=== PATIENT | female | born 1935 | race Native Hawaiian/Other Pacific Islander ===

== ENCOUNTER 2016-07-24 14:21 | Outpatient (CLI) | payer OTHER ==
[~2016-07-24 14:21] MED LIST: ALPR0.5T24 PO; AMLO2.5T PO; ASA LOW DOSE81 MG PO; ASCO500T18 PO; B12-ACTIVE1 MG PO; BUME1TAB19 PO; CELE200C2 PO; CELEBREX50 MG PO; COZAAR100 MG PO; CYCL10TA35 PO; DEXL60CA4 PO; DULO30CA PO; DULO60CA2 PO; FERRO-BOB325 MG PO; FISH OIL1 C10 PO; FURO20TA67 PO; HYDROCHLOROT50 MG PO; INSUINJ47 SC; K-TABS10 MEQ PO; KLOR-CON M2020 MEQ PO; LEVO0.0529 PO; LORA1TAB17 PO; MELOXICAM15 MG PO; MULTIVITAMI1 PO; NORCO 10/325***1 TAB PO; NOVOLOG MIX 70/30 PR SC; NOVOLOG SC; OCUVITE LUTEIN PO; OMEGA 31200 MG PO; OMEP20CA PO; PACERONE200 MG PO; PANT40TA PO; PRAVACHOL20 MG PO; REMERON30 MG PO; REQUIP0.25 MG PO; SEROQUEL25 MG PO; SPIR50TA8 PO; VITAMIN B-12100 MCG PO; WARF7.5T5 PO; WARFARIN10 MG PO; ZANTAC 75 PO
== END 2016-07-24 19:11 | disposition home or self-care (01) ==
LOC: MAMMO 14:21 → US 14:21
DX: Z12.31 Encounter for screening mammogram for malignant neoplasm of breast (principal); G25.81 Restless legs syndrome
CPT/HCPCS: G0202-TC

== ENCOUNTER 2016-08-10 11:48 | Outpatient (CLI) | payer OTHER | END 2016-08-10 19:02 | disposition home or self-care (01) | LOC: RAD 11:48 | DX: S72.335D Nondisplaced oblique fracture of shaft of left femur, subsequent encounter for closed fracture with routine healing (principal) ==

== ENCOUNTER 2016-09-14 10:28 | Observation (INO) | payer OTHER ==
[~2016-09-14] VITALS: Ht 165.1 cm; Wt 125.3 kg
[2016-09-14 13:16] LABS: PLATELET COUNT 185 K/uL (152-353)
[2016-09-14 13:39] LABS: POTASSIUM 4.2 mmol/L (3.6-5.2); SODIUM 135 mmol/L (136-145)
[2016-09-14 16:00] VITALS: BP 109/54; TEMP 97.4
[2016-09-14 20:16] VITALS: BP 146/68; TEMP 98; Ht 165.1 cm; Wt 125.3 kg
[2016-09-14 20:47] VITALS: BP 127/58; TEMP 98
[2016-09-14] MEDS ORDERED: MULTIVITAMIN OR (23:17)
[2016-09-14] MEDS ORDERED: NEXIUM40 MG PO (23:19)
[2016-09-14] MEDS ORDERED: COZAAR100 MG PO (23:20)
[2016-09-14] MEDS ORDERED: CELEBREX200 MG PO (23:21)
[2016-09-14] MEDS ORDERED: WARF5TAB6 PO (23:24)
[2016-09-14] MEDS ORDERED: ROPINIROLE2 M1 OR (23:26)
[2016-09-14] MEDS ORDERED: WARF4TAB7 PO (23:27)
[2016-09-14] MEDS ORDERED: SEROQUEL50 MG OR (23:29)
[2016-09-14] MEDS ORDERED: COUMADIN6 MG PO (23:31)
[2016-09-14] MEDS ORDERED: OCUVITE EYE OR (23:32)
[2016-09-14] MEDS ORDERED: MULTI OR (23:32)
[2016-09-15 00:24] VITALS: BP 104/50; TEMP 98.4
[2016-09-15 05:07] VITALS: BP 133/75; TEMP 97.8
[2016-09-15 08:00] VITALS: BP 161/83; TEMP 98.4
[2016-09-15 10:47] LABS: PLATELET COUNT 193 K/uL (152-353)
[2016-09-15 11:12] LABS: POTASSIUM 4.3 mmol/L (3.6-5.2); SODIUM 133 mmol/L (136-145)
[2016-09-15 12:00] VITALS: BP 183/84; TEMP 98.2
[2016-09-15 16:00] VITALS: BP 150/76; TEMP 98
[2016-09-15 19:56] VITALS: BP 137/54; TEMP 98.1
[2016-09-16] VITALS: BP 138/66; TEMP 98.2
[2016-09-16 04:57] LABS: PLATELET COUNT 193 K/uL (152-353)
[2016-09-16 05:11] LABS: POTASSIUM 4.3 mmol/L (3.6-5.2)
[2016-09-16 05:28] VITALS: BP 120/53; TEMP 98.1
[2016-09-16 08:18] VITALS: BP 142/80; TEMP 98.2
[2016-09-16 12:00] VITALS: BP 110/58; TEMP 98.4
== END 2016-09-16 18:54 | disposition short-term general hospital (02) ==
LOC: MED/SURG 10:28
PROVIDERS: ADMIT Family Medicine
DX: R07.89 Other chest pain (principal)
CPT/HCPCS: 36415; 80053; 82550; 82553; 83735; 83880; 84484; 85027; 85610; 85730; 93005; 94760; 99220; G0378; G0379

== ENCOUNTER 2016-09-16 18:58 | Outpatient (CLI) | payer OTHER ==
[~2016-09-16 18:58] MED LIST changes: +CELEBREX200 MG PO; +COUMADIN6 MG PO; +MULTI OR; +MULTIVITAMIN OR; +NEXIUM40 MG PO; +OCUVITE EYE OR; +ROPINIROLE2 M1 OR; +SEROQUEL50 MG OR; +WARF4TAB7 PO; +WARF5TAB6 PO
== END 2016-09-16 20:23 | disposition short-term general hospital (02) ==
LOC: AMB 18:58
DX: R07.89 Other chest pain (principal)
CPT/HCPCS: A0425; A0427

== ENCOUNTER 2016-12-08 18:13 | Inpatient (IN) | payer OTHER ==
[~2016-12-08] VITALS: Ht 165.1 cm; Wt 125.4 kg
--- NOTE | 2016-12-08 19:15 | NUR ---
RECEIVED VIA DIRECT ADMIT FOR SERVICES OF DR PAUL. ALERT AND ORIENTED X 3. PATIENT GIVEN EDUCATION REGARDING BED CONTROLS AND CALL LIGHT. INSTRUCTED TO KEEP BED IN LOW POSITION. 20G STARTED IN LT HAND. NS INFUSING AT 30CC/HR. LAB WORK DRAWN VIA IV SITE, FAMILY AT BEDSIDE.
[2016-12-08 19:54] LABS: PLATELET COUNT 184 K/uL (152-353)
[2016-12-08 20:00] VITALS: BP 128/48; TEMP 99.4; Ht 165.1 cm; Wt 125.4 kg
--- NOTE | 2016-12-08 20:00 | NUR ---
RT LOWER LEG PURPLE COLORED BELOW KNEE. PEDAL PULSE REGULAR. CALF CIRCUMFERENCE = 41.5 CM. LT CALF CICUMFERENCE 40.5 CM.
[2016-12-08 20:17] LABS: POTASSIUM 4.6 mmol/L (3.6-5.2)
[2016-12-08 23:46] VITALS: BP 106/65; TEMP 100.5
[2016-12-09] MEDS ORDERED: JANTOVEN7.5 MG OR (01:01)
[2016-12-09 04:00] VITALS: BP 107/56; TEMP 99
[2016-12-09 04:59] LABS: PLATELET COUNT 178 K/uL (152-353)
[2016-12-09 06:02] LABS: POTASSIUM 4.8 mmol/L (3.6-5.2)
--- NOTE | 2016-12-09 07:50 | NUR ---
LEFT MESSAGE WITH DR PAUL REGARDING REPORT GIVEN ON PATIENT FROM [facility] OF INCREASE IN REDNESS TO RIGHT LEG. DOCUMENTATION OBSERVED OF INCREASE AT MN AND 0230AM. REPORTED TO MYSELF FROM [facility] MD NOT NOTIFIED.
[2016-12-09 08:00] VITALS: BP 128/60; BP 128/96; TEMP 98.4
[2016-12-09 12:13] VITALS: BP 125/68; TEMP 96.5
[2016-12-09 16:00] VITALS: BP 119/63; TEMP 98.7
--- NOTE | 2016-12-09 16:00 | NUR ---
CALLED DR PAUL NO ANSWER ON CELL PHONE REGARDING PT'S C/O OF RESTLESS LEGS.
--- NOTE | 2016-12-09 16:24 | NUR ---
DR PAUL ON FLOOR. INFORMED HER PHARMACY RECOMMENDATIONS. STATED GO WITH VANCOMYCIN 1GM IV Q 12 HOURS AND CONTINUE ZOSYN. INFORMED HER PT REQUESTING RESTLESS LEG MEDICATION. STATED GIVE HER HOME MED.
[2016-12-09 20:00] VITALS: BP 103/50; TEMP 98.8
--- NOTE | 2016-12-09 22:37 | NUR ---
12/09/16 2100 RIGHT LEG MEASURED TOP OF RIGHT LEG AT THIGH 22 INCHES,CALF AREA 18 1/4 INCHES.LOWER LEG MEASURES 11 1/4 INCHES.CC 12/09/16 2200 WARM COMPRESS APPLIED TO RIGHT LEG.CC
[2016-12-10] VITALS: BP 92/47; TEMP 98.2
[2016-12-10 04:00] VITALS: BP 93/53; TEMP 98.6
[2016-12-10 06:31] LABS: PLATELET COUNT 186 K/uL (152-353)
[2016-12-10 06:45] LABS: POTASSIUM 4.4 mmol/L (3.6-5.2)
[2016-12-10 08:00] VITALS: BP 100/49; TEMP 98
[2016-12-10 12:00] VITALS: BP 106/55; TEMP 98.1
[2016-12-10 16:00] VITALS: BP 115/70; TEMP 97.8
[2016-12-10 20:00] VITALS: BP 90/38; TEMP 98.1
[2016-12-11] VITALS: BP 114/59; TEMP 98.1
--- NOTE | 2016-12-11 00:01 | NUR ---
12/10/16 2330 GWENDOLYN HOSE APPLIED TO LEGS BIALTERAL.WARM COMPRESS APPLIED TO RIGHT LEG.PT TOLERATED WELL.CC 12/10/16 BLOOD SUGAR CHECKED PT STATED SHE HASNOT BEEN EATING ALOT WILL MONITOR,BLOOD SUGAR 224.CC
[2016-12-11 04:00] VITALS: BP 115/65; TEMP 98
[2016-12-11 05:40] LABS: PLATELET COUNT 181 K/uL (152-353)
[2016-12-11 06:13] LABS: POTASSIUM 4.4 mmol/L (3.6-5.2)
--- NOTE | 2016-12-11 06:48 | NUR ---
12/11/16 0640 WARM COMPRESSES APPLIED TO RIGHT LEG.CC
[2016-12-11 08:00] VITALS: BP 131/71; TEMP 98.7
[2016-12-11 12:00] VITALS: BP 107/65; TEMP 97.7
[2016-12-11 16:00] VITALS: BP 119/61; TEMP 98.2
[2016-12-11 20:00] VITALS: BP 153/73; TEMP 98.1
--- NOTE | 2016-12-11 21:57 | NUR ---
SCANNED VANC TROUGH TO PHARM D. PHARMACIST RAJESH STATED THAT VANC SHOULD BE GIVEN THAT 20 UG/ML WAS THE MAX. PT'S LEVEL IS 19 UG/ML.
[2016-12-12] VITALS: BP 108/47; TEMP 97.9
[2016-12-12 04:00] VITALS: BP 117/55; TEMP 97.6
[2016-12-12 05:28] LABS: PLATELET COUNT 203 K/uL (152-353)
[2016-12-12 05:38] LABS: POTASSIUM 4.6 mmol/L (3.6-5.2)
[2016-12-12 08:00] VITALS: BP 157/86; TEMP 97.9
--- NOTE | 2016-12-12 09:30 | NUR ---
DR PAUL NOTIFIED OF LAB RESULTS. NEW ORDERS RECEIVED FOR PATIENT TO BE DISCHARGED HOME ONCE ANTIOBIOTICS DOSED AND SCHEDULED PER PHARMACY FOR INFUSION CLINIC X 5 DAYS STARTING TOMORROW.
[2016-12-12 12:00] VITALS: BP 147/86; TEMP 98.1
--- NOTE | 2016-12-12 13:05 | NUR ---
PT D/C'D AWAITING TRANSPORTATION HOME. PT GIVEN INSTRUCTIONS.
--- NOTE | 2016-12-12 14:00 | NUR ---
INFORMED DR PAUL THAT PATIENT STILL ON SOLUMEDROL IV. INFORMED HER PT AWAITING TRANSPORTATION HOME TO WHY PATIENT STILL HERE. STATED NEW ORDERS TO CALL IN RX FOR COUMADIN 7.5MG PO DAILY; REPEAT PT/INR ON FRIDAY IN INFUSION CLINIC. D/C SOLUMEDROL.
[2016-12-12 16:00] VITALS: BP 130/71; TEMP 97.9
--- NOTE | 2016-12-12 16:50 | NUR ---
IV D/C'D CATH TIP INTACT. INSTRUCTIONS GIVEN TO PT. DAUGHTER HERE TO TRANSPORT HOME.
== END 2016-12-12 17:30 | disposition home or self-care (01) | DRG 603 ==
LOC: MED/SURG 18:13
PROVIDERS: ADMIT Family Medicine
DX: L03.115 Cellulitis of right lower limb (principal); N39.0 Urinary tract infection, site not specified; I87.8 Other specified disorders of veins; I10 Essential (primary) hypertension; E11.9 Type 2 diabetes mellitus without complications; Z91.14 Patient's other noncompliance with medication regimen; T45.515A Adverse effect of anticoagulants, initial encounter; Y92.89 Other specified places as the place of occurrence of the external cause
CPT/HCPCS: 36415; 36591; 80053; 80202; 81000; 82948; 83735; 83880; 84100; 84443; 85027; 85379; 85610; 85651; 87040; 87077; 87086; 87088; 87186; 96372; J1335; J1815; J1885; J2930

== ENCOUNTER 2016-12-13 12:42 | Outpatient (CLI) | payer OTHER ==
[~2016-12-13] VITALS: Ht 165.1 cm; Wt 125.3 kg
[~2016-12-13 12:42] MED LIST changes: +JANTOVEN7.5 MG OR
== END 2016-12-13 19:08 | disposition home or self-care (01) ==
LOC: INF 12:42
DX: L03.818 Cellulitis of other sites (principal)
CPT/HCPCS: 96365; 96367; J1335; J3370

== ENCOUNTER 2016-12-14 12:45 | Outpatient (CLI) | payer OTHER ==
[~2016-12-14] VITALS: Ht 30.5 cm; Wt 0.5 kg
== END 2016-12-14 16:00 | disposition home or self-care (01) ==
LOC: INF 12:45
DX: L03.818 Cellulitis of other sites (principal)
CPT/HCPCS: 96365; 96367; J1335; J3370

== ENCOUNTER 2016-12-15 13:14 | Outpatient (CLI) | payer OTHER ==
[~2016-12-15] VITALS: Ht 2.5 cm; Wt 0.5 kg
== END 2016-12-15 16:00 | disposition home or self-care (01) ==
LOC: INF 13:14
DX: L03.818 Cellulitis of other sites (principal)
CPT/HCPCS: 96365; 96367; J1335; J3370

== ENCOUNTER 2016-12-16 13:04 | Outpatient (CLI) | payer OTHER ==
[~2016-12-16] VITALS: Ht 165.1 cm; Wt 125.2 kg
[2016-12-16 15:31] LABS: PARTIAL THROMBOPLASTIN TIME 24.5 SECONDS (24.5-33.6)
== END 2016-12-16 16:00 | disposition home or self-care (01) ==
LOC: INF 13:04
PROVIDERS: Family Medicine
DX: L03.818 Cellulitis of other sites (principal)
CPT/HCPCS: 80202; 85610; 85730; J1335; J3370

== ENCOUNTER 2016-12-17 12:47 | Outpatient (CLI) | payer OTHER ==
[~2016-12-17] VITALS: Ht 165.1 cm; Wt 125.2 kg
[2016-12-17 12:55] VITALS: BP 142/59; TEMP 99.2
[2016-12-17 14:40] VITALS: BP 149/76
== END 2016-12-17 14:40 | disposition home or self-care (01) ==
LOC: INF 12:47
DX: L03.818 Cellulitis of other sites (principal)
CPT/HCPCS: 96365; 96366; J1335; J3370

== ENCOUNTER 2017-01-15 10:20 | Outpatient (CLI) | payer OTHER ==
[~2017-01-15] VITALS: Ht 165.1 cm; Wt 122.9 kg
[2017-01-15 11:20] VITALS: BP 95/49; TEMP 98
== END 2017-01-15 11:20 ==
LOC: INF 10:20
DX: M81.0 Age-related osteoporosis without current pathological fracture (principal)
CPT/HCPCS: 36415; 82310; 96372; J0897

== ENCOUNTER 2017-01-30 04:02 | Emergency (ER) | payer OTHER ==
[~2017-01-30] VITALS: Ht 165.1 cm; Wt 121.6 kg
[2017-01-30 04:26] LABS: PLATELET COUNT 218 K/uL (152-353)
[2017-01-30 04:32] LABS: POTASSIUM 4.8 mmol/L (3.6-5.2)
[2017-01-30 04:57] LABS: PARTIAL THROMBOPLASTIN TIME 38.2 SECONDS (24.5-33.6)
[2017-01-30 05:05] VITALS: BP 103/61; TEMP 98.3
== END 2017-01-30 05:33 | disposition home or self-care (01) ==
LOC: ED 04:02
DX: L03.115 Cellulitis of right lower limb (principal); I48.91 Unspecified atrial fibrillation
CPT/HCPCS: 36415; 80048; 85027; 85610; 85730; 96365; 99284; J3490

== ENCOUNTER 2017-02-12 10:13 | Outpatient (CLI) | payer OTHER | END 2017-02-12 18:55 | disposition home or self-care (01) | LOC: RAD 10:13 | DX: M81.0 Age-related osteoporosis without current pathological fracture (principal) ==

== ENCOUNTER 2017-02-18 09:41 | Outpatient (CLI) | payer OTHER ==
[2017-06-06] MEDS ORDERED: CELECOXIB200 MG PO (19:53)
[2017-06-06] MEDS ORDERED: FLONASE AL50 MCG/ACT (19:54)
[2017-06-06] MEDS ORDERED: PROAIR HFA IN (19:55)
[2017-06-06] MEDS ORDERED: HYDR5TAB9 PO (19:59)
== END 2017-02-18 19:00 | disposition home or self-care (01) ==
LOC: RAD 09:41
DX: S72.22XD Displaced subtrochanteric fracture of left femur, subsequent encounter for closed fracture with routine healing (principal)

== ENCOUNTER 2017-04-28 15:48 | Outpatient (CLI) | payer OTHER ==
[2017-04-28 16:11] LABS: POTASSIUM 4.4 mmol/L (3.6-5.2); SODIUM 138 mmol/L (136-145)
[2017-06-06] MEDS ORDERED: CELECOXIB200 MG PO (19:53)
[2017-06-06] MEDS ORDERED: FLONASE AL50 MCG/ACT (19:54)
[2017-06-06] MEDS ORDERED: PROAIR HFA IN (19:55)
[2017-06-06] MEDS ORDERED: HYDR5TAB9 PO (19:59)
== END 2017-04-28 16:50 | disposition home or self-care (01) ==
LOC: LABW 15:48
PROVIDERS: Internal Medicine Cardiovascular Disease
DX: R06.02 Shortness of breath (principal)
CPT/HCPCS: 36415; 80048; 83880

== ENCOUNTER 2017-06-25 13:05 | Emergency (ER) | payer OTHER ==
[~2017-06-25] VITALS: Ht 165.1 cm; Wt 127.0 kg
[2017-06-25 13:00] VITALS: TEMP 98.4
[~2017-06-25 13:05] MED LIST changes: +CELECOXIB200 MG PO; +FLONASE AL50 MCG/ACT; +HYDR5TAB9 PO; +PROAIR HFA IN
[2017-06-25 14:24] LABS: PLATELET COUNT 206 K/uL (152-353)
[2017-06-25 15:20] VITALS: BP 140/62
== END 2017-06-25 15:32 | disposition home or self-care (01) ==
LOC: ED 13:05
PROVIDERS: Family Medicine
DX: R04.0 Epistaxis (principal)
CPT/HCPCS: 36415; 85027; 85610; 99283

== ENCOUNTER 2017-08-14 10:16 | Outpatient (CLI) | payer OTHER | END 2017-08-14 22:21 | disposition home or self-care (01) | LOC: MAMMO 10:16 | DX: Z12.31 Encounter for screening mammogram for malignant neoplasm of breast (principal) ==

== ENCOUNTER 2017-08-26 10:01 | Outpatient (CLI) | payer OTHER ==
[~2017-08-26] VITALS: Ht 165.1 cm; Wt 121.1 kg
[2017-08-26 11:11] VITALS: BP 158/78; TEMP 98
[2017-08-26 11:23] VITALS: BP 157/72; TEMP 98
== END 2017-08-26 11:27 | disposition home or self-care (01) ==
LOC: INF 10:01
DX: M81.0 Age-related osteoporosis without current pathological fracture (principal)
CPT/HCPCS: 36415; 82310; 96372; J0897

== ENCOUNTER 2018-04-02 09:50 | Outpatient (CLI) | payer OTHER ==
[~2018-04-02] VITALS: Ht 165.1 cm; Wt 121.6 kg
== END 2018-04-02 20:07 | disposition home or self-care (01) ==
LOC: INF 09:50
DX: M81.0 Age-related osteoporosis without current pathological fracture (principal)
CPT/HCPCS: 36415; 82310; 96372; J0897

== ENCOUNTER 2018-05-11 10:57 | Outpatient (CLI) | payer OTHER | END 2018-05-11 22:31 | disposition home or self-care (01) | LOC: RAD 10:57 | DX: J40 Bronchitis, not specified as acute or chronic (principal) ==

== ENCOUNTER 2018-09-01 09:41 | Outpatient (CLI) | payer OTHER | END 2018-09-01 22:59 | disposition home or self-care (01) | LOC: MAMMO 09:41 | DX: Z12.31 Encounter for screening mammogram for malignant neoplasm of breast (principal) ==

== ENCOUNTER 2018-10-21 08:53 | Outpatient (CLI) | payer OTHER ==
[~2018-10-21] VITALS: Ht 165.1 cm; Wt 113.9 kg
[2018-10-21 09:45] VITALS: BP 131/78; TEMP 97.7
== END 2018-10-21 10:45 | disposition home or self-care (01) ==
LOC: INF 08:53
DX: M81.0 Age-related osteoporosis without current pathological fracture (principal)
CPT/HCPCS: 36415; 82310; 96372; J0897

== ENCOUNTER 2019-02-12 15:31 | Outpatient (CLI) | payer OTHER | END 2019-02-12 21:55 | disposition home or self-care (01) | LOC: LAB 15:31 | DX: R06.02 Shortness of breath (principal); R60.0 Localized edema | CPT/HCPCS: 83880 ==

== ENCOUNTER 2019-05-18 10:25 | Outpatient (CLI) | payer OTHER ==
[~2019-05-18] VITALS: Ht 165.1 cm; Wt 113.9 kg
[2019-05-18 10:43] VITALS: BP 142/79; TEMP 98
== END 2019-05-18 11:39 | disposition home or self-care (01) ==
LOC: INF 10:25
DX: M81.0 Age-related osteoporosis without current pathological fracture (principal)
CPT/HCPCS: 36415; 82310; 96372; J0897

== ENCOUNTER 2020-04-11 12:20 | Outpatient (CLI) | payer OTHER | END 2020-04-11 20:22 | disposition home or self-care (01) | LOC: CT 12:20 | DX: R10.31 Right lower quadrant pain (principal); M25.551 Pain in right hip | CPT/HCPCS: 36415; 82565; 84520; Q9963 ==

== ENCOUNTER 2020-04-13 14:23 | Observation (INO) | payer OTHER ==
[~2020-04-13] VITALS: Ht 165.1 cm; Wt 114.0 kg
[2020-04-13 15:03] VITALS: BP 108/69; TEMP 97.9; Ht 165.1 cm; Wt 114.0 kg
[2020-04-13 16:00] VITALS: BP 108/69; TEMP 97.9
[2020-04-13 16:36] LABS: PLATELET COUNT 207 K/uL (152-353)
[2020-04-13 16:46] LABS: POTASSIUM 4.7 mmol/L (3.6-5.2)
[2020-04-13 20:00] VITALS: BP 117/68; BP 89/57; TEMP 97.5; TEMP 98
[2020-04-13] MEDS ORDERED: HYDR5TAB9 PO (20:04)
[2020-04-13] MEDS ORDERED: SPIR50TA8 PO (20:07)
[2020-04-13] MEDS ORDERED: JANTOVEN6 MG PO (20:12)
[2020-04-13] MEDS ORDERED: JANTOVEN7.5 MG PO (20:19)
[2020-04-14] VITALS: BP 95/62; TEMP 98.4
[2020-04-14 04:00] VITALS: BP 93/41; TEMP 98.2
[2020-04-14 04:51] LABS: PLATELET COUNT 162 K/uL (152-353)
[2020-04-14 05:35] LABS: POTASSIUM 4.6 mmol/L (3.6-5.2)
[2020-04-14 08:00] VITALS: BP 141/68; TEMP 97.7
[2020-04-14 12:00] VITALS: BP 103/60; TEMP 98.5
[2020-04-14 16:00] VITALS: BP 9898/48; TEMP 97.9
== END 2020-04-14 20:27 | disposition home or self-care (01) ==
LOC: MED/SURG 14:23
PROVIDERS: ADMIT Family Medicine
DX: M25.78 Osteophyte, vertebrae (principal); M48.00 Spinal stenosis, site unspecified; M54.10 Radiculopathy, site unspecified; E13.65 Other specified diabetes mellitus with hyperglycemia; Z91.19 Patient's noncompliance with other medical treatment and regimen; I10 Essential (primary) hypertension; E78.49 Other hyperlipidemia; I48.0 Paroxysmal atrial fibrillation; Z79.01 Long term (current) use of anticoagulants; E66.01 Morbid (severe) obesity due to excess calories; M15.8 Other polyosteoarthritis
CPT/HCPCS: 36415; 80053; 81000; 82306; 82550; 83735; 84100; 84443; 85027; 85610; 87040; 93005; 96366; 96374; 96375; 99220; A9576; G0378; G0379; J1885; J2060; J2270; J2405; J2930

== ENCOUNTER 2020-08-11 11:19 | Outpatient (CLI) | payer OTHER ==
[~2020-08-11 11:19] MED LIST changes: +JANTOVEN6 MG PO; +JANTOVEN7.5 MG PO
== END 2020-08-11 20:56 | disposition home or self-care (01) ==
LOC: CT 11:19
PROVIDERS: ATTEND Nurse Practitioner Family
DX: R55 Syncope and collapse (principal)

== ENCOUNTER 2020-08-16 09:33 | Outpatient (CLI) | payer OTHER | END 2020-08-16 21:06 | disposition home or self-care (01) | LOC: MAMMO 09:33 | PROVIDERS: ATTEND Internal Medicine Hematology & Oncology | DX: Z12.31 Encounter for screening mammogram for malignant neoplasm of breast (principal); C50.411 Malignant neoplasm of upper-outer quadrant of right female breast; I48.91 Unspecified atrial fibrillation | CPT/HCPCS: 36415; 85610 ==

== ENCOUNTER 2020-08-23 08:58 | Outpatient (CLI) | payer OTHER ==
[2020-08-23 09:36] LABS: PLATELET COUNT 198 K/uL (152-353)
[2020-08-23 10:15] LABS: POTASSIUM 4.8 mmol/L (3.6-5.2)
== END 2020-08-23 19:37 | disposition home or self-care (01) ==
LOC: LABW 08:58
PROVIDERS: ATTEND Internal Medicine Cardiovascular Disease
DX: I10 Essential (primary) hypertension (principal); E78.49 Other hyperlipidemia; Z79.899 Other long term (current) drug therapy; Z79.01 Long term (current) use of anticoagulants
CPT/HCPCS: 36415; 80048; 80061; 84443; 85027; 85610

== ENCOUNTER 2020-09-11 13:04 | Outpatient (CLI) | payer OTHER ==
[2020-09-12] MEDS ORDERED: SPIRONOLACT50 MG PO (18:53)
[2020-09-12] MEDS ORDERED: FAMOTIDINE40 MG PO (18:55)
[2020-09-12] MEDS ORDERED: GABA300C2 PO (18:55)
[2020-09-12] MEDS ORDERED: JANTOVEN6 MG PO (18:56)
[2020-09-12] MEDS ORDERED: JANTOVEN7.5 MG PO (18:57)
[2020-09-12] MEDS ORDERED: IRON PO (18:58)
[2020-09-12] MEDS ORDERED: CALCI20 PO (18:58)
[2020-09-12] MEDS ORDERED: OMEGA 31000 MG PO (18:59)
[2020-09-12] MEDS ORDERED: MULTIVITAMI1 PO (18:59)
[2020-09-12] MEDS ORDERED: VISION FORMULA1 TAB PO (19:00)
[2020-09-12] MEDS ORDERED: VITAMIN C1000 MG PO (19:00)
[2020-09-12] MEDS ORDERED: IS-ZC 50 50 MG1 TAB PO (19:01)
[2020-09-12] MEDS ORDERED: PRENATA1 PO (19:01)
== END 2020-09-11 21:39 | disposition home or self-care (01) ==
LOC: US 13:04
PROVIDERS: ATTEND Nurse Practitioner Family
DX: L02.818 Cutaneous abscess of other sites (principal)

== ENCOUNTER 2020-09-12 15:36 | Inpatient (IN) | payer OTHER ==
[~2020-09-12] VITALS: Ht 165.1 cm; Wt 115.9 kg
[2020-09-12 16:39] VITALS: BP 109/53; TEMP 98.3; Ht 165.1 cm; Wt 115.9 kg
[2020-09-12 16:42] LABS: PLATELET COUNT 253 K/uL (152-353)
[2020-09-12 17:01] LABS: POTASSIUM 4.2 mmol/L (3.6-5.2)
--- NOTE | 2020-09-12 17:44 | NUR ---
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
--- NOTE | 2020-09-12 18:16 | NUR ---
ASSISTED PT TO BATHROOM AND BACK. CLINDAMYCIN STARTED AT THIS TIME.
[2020-09-12] MEDS ORDERED: SPIRONOLACT50 MG PO (18:53)
[2020-09-12] MEDS ORDERED: GABA300C2 PO (18:55)
[2020-09-12] MEDS ORDERED: FAMOTIDINE40 MG PO (18:55)
[2020-09-12] MEDS ORDERED: JANTOVEN6 MG PO (18:56)
[2020-09-12] MEDS ORDERED: JANTOVEN7.5 MG PO (18:57)
[2020-09-12] MEDS ORDERED: CALCI20 PO (18:58)
[2020-09-12] MEDS ORDERED: IRON PO (18:58)
[2020-09-12] MEDS ORDERED: OMEGA 31000 MG PO (18:59)
[2020-09-12] MEDS ORDERED: MULTIVITAMI1 PO (18:59)
[2020-09-12] MEDS ORDERED: VISION FORMULA1 TAB PO (19:00)
[2020-09-12] MEDS ORDERED: VITAMIN C1000 MG PO (19:00)
[2020-09-12] MEDS ORDERED: PRENATA1 PO (19:01)
[2020-09-12] MEDS ORDERED: IS-ZC 50 50 MG1 TAB PO (19:01)
[2020-09-12 20:00] VITALS: BP 144/67; TEMP 98
[2020-09-13] VITALS (7 sets, daily range): BP systolic 91–139; BP diastolic 43–71; TEMP 98–99.3
--- NOTE | 2020-09-13 02:35 | NUR ---
09/12/2020 AT 2130 IV SITE CLEAN WITHOUT EDEMA OR REDNESS AND PATIENT DENIES ANY TENDERNESS. IV SITE FLUSHED WITH 10 MLS OF NORMAL SALINE WITHOUT ANY DIFFICULTY. IV VANCOMYCIN 1GRAM STARTED, PATIENT ADVISED TO CALL IF ANY SWELLING, PAIN OR ANY BEEPING OF IV PUMP AND SHE VERBALIZES UNDERSTANDING. CALL LIGHT WITHIN HER REACH AND WILL CONTINUE TO MONITOR.
--- NOTE | 2020-09-13 02:38 | NUR ---
09/12/2020 AT 2230 IV VANCOMYCIN COMPLETED, PATIENT TOLERATED WELL. NO PAIN OR SWELLING NOTED TO SITE. IV FLUSHED WITH 10 MLS OF NORMAL SALINE WITHOUT ANY DIFFICULTY. GREEN ALCOHOL CAP APPLIED. CALL LIGHT WITHIN REACH AND WILL CONTINUE TO MONITOR.
--- NOTE | 2020-09-13 02:40 | NUR ---
09/12/2020 AT 2330 IV SITE CLEAN DRY AND INTACT, NO REDNESS OR EDEMA NOTED AT THIS TIME. IV SITE FLUSHED WITH 10MLS OF NORMAL SALINE WITHOUT DIFFICULTY AND PATIENT TOLERATED WELL. IV CLEOCIN 300MG STARTED AND PATIENT ADVISED TO NOTIFY NURSE IF ANY PAIN, SWELLING, REDNESS OR PUMP BEEPING AND PATIENT VERBALIZES UNDERSTANDING. CALL LIGHT WITHIN REACH. WILL CONTINUE TO MONITOR.
--- NOTE | 2020-09-13 02:42 | NUR ---
09/13/2020 AT 0015 IV INFUSION OF CLEOCIN COMPLETE, PATIENT TOLERATED WELL. NO SIGNS OR SYMPTOMS OF REACTION AND IV SITE CLEAN, DRY AND INTACT. IV SITE FLUSHED WITH 10 MLS OF NORMAL SALINE WITHOUT DIFFICULTY AND IV SALINE LOCKED AND ALCOHOL CAP APPLIED. PATIENT TOLERATED WELL. CALL LIGHT WITHIN REACH AND WILL CONTINUE TO MONITOR.
[2020-09-13 08:25] LABS: PLATELET COUNT 212 K/uL (152-353)
[2020-09-13 08:38] LABS: POTASSIUM 4.5 mmol/L (3.6-5.2)
--- NOTE | 2020-09-13 08:50 | NUR ---
PATIENT IS AWAKE THIS MORNING AND RESTING WITH EYES OPEN. SHIFT ASSESSMENT COMPLETED. PATIENT REMAINS NPO. PATIENT WILL BE HAVING A I&D POSSIBLY THIS MORNING. WILL NOTIFY .
--- NOTE | 2020-09-13 09:26 | NUR ---
CALLED AND SPOKE WITH REGARDING PLAN OF CARE FOR TODAY WHICH INCLUDED A POSSIBLE I&D PATIENT IS NPO OF MIDNIGHT.UPDATED ON HOW WOUND LOOKS AND SHE GAVE ADDITIONAL ORDERS FOR PATIENT TO HAVE A LACTIC ACID AND CT OF THE PEVLIS BUTTOCKS WITH/WITHOUT CONTRAST. ORDER PLACED IN CHART. AFTER TESTING PATIENT CAN COME OFF NPO STATUS AND CAN HAVE A DIET WELL TAKE HER MEDICATIONS ORDERED.
--- NOTE | 2020-09-13 10:40 | NUR ---
PATIENT TAKEN TO RADIOLOGY FOR CT SCAN AT THIS TIME.
--- NOTE | 2020-09-13 14:30 | NUR ---
WARM COMPRESS PLACED ON PATIENTS RIGHT BUTTOCKS TO HELP WITH SWELLING. PATIENT TOLERATING WELL.
--- NOTE | 2020-09-13 17:40 | NUR ---
WARM COMPRESSES PLACED TO THE RIGHT HIP/BUTTOCKS. PATIENT IS UP AND EATING SUPPER. IV 22G TO THE LEFT WRIST NOTED WITH BLOOD AROUND THE TIP. IV REMOVED WITH TIP INTACT AND SECURED WITH 2X2 AND TAPE. IV 22G TO THE LEFT WRIST/FOREARM REMOVED WITH TIP INTACT AND SECURED WITH TAPE. VANCOMYCIN STARTED AND INFUSING W/O DIFFICULTY.
--- NOTE | 2020-09-13 17:50 | NUR ---
HERE TO SEE PATIENT. NEW ORDERS GIVEN TO CONSULT OR FOR I&D IN THE MORNING. WILL NOTIFY ERWIN ZAVALA MAINTENANCE FITTER TO SCHEDULE FOR PROCEDURE. PATIENT WILL BE NPO AT MIDNIGHT.
[2020-09-14 04:16] VITALS: BP 94/41; TEMP 98.3
[2020-09-14 04:16] LABS: PLATELET COUNT 233 K/uL (152-353)
[2020-09-14 04:44] LABS: POTASSIUM 4.8 mmol/L (3.6-5.2)
--- NOTE | 2020-09-14 05:01 | NUR ---
PT HAS RESTED WELL THIS SHIFT. DENIES PAIN. NPO FOR I&D THIS AM.
[2020-09-14 08:00] VITALS: BP 118/65; TEMP 98.8
--- NOTE | 2020-09-14 09:29 | NUR ---
PATIENT TRANSFERRED TO OR VIA WHEELCHAIR.
--- NOTE | 2020-09-14 10:30 | NUR ---
PATIENT RESTING IN BED. NAD NOTED. PATIENT ALERT, ORIENTED, AND FREE OF PAIN. MORNING MEDICATIONS GIVEN TO PATIENT WITH NO DIFFICULTY.
[2020-09-14 11:57] VITALS: BP 147/78; TEMP 98
[2020-09-14 16:00] VITALS: BP 96/60; TEMP 97.9
[2020-09-14] MEDS ORDERED: JANTOVEN7.5 MG PO (18:30)
--- NOTE | 2020-09-14 19:30 | NUR ---
PM ROUNDS MADE. PT IS SITTING UP ON SIDE OF HER BED TALKING ON PHONE WITH FAMILY MEMBER. NO COMPLAINTS VOICED AT THIS TIME. IV 22 G TO PT'S L WRIST INTACT WITHOUT EDEMA OR REDNESS. DRESSING INTACT TO RIGHT HIP S/P SURGICAL. NO DRAINAGE NOTED. VITAL SIGNS ARE WNL. BLOOD SUGAR IS 141. PT HAS HAD ONLY SPOONFUL OF SOUP TODAY. BEDSIDE TABLE IN EASY REACH. PHONE CLOSE TO PT. INSTRUCTED PT TO CALL FOR ASSISTANCE. PT VOICED UNDERSTANDING.
[2020-09-14 20:17] VITALS: BP 117/66; TEMP 98.5
--- NOTE | 2020-09-14 20:30 | NUR ---
PT WAS ASSISTED WITH POSITIONING IN BED. PT WAS SERVED GREEN SALAD WITH DIABETIC DRESSING. PT TOOK HER PO MEDICATIONS WITH WATER. BEDSIDE TABLE IN EASY REACH. REINSTRUCTED PT TO CALL FOR ASSISTANCE. PT VOICED UNDERSTANDING.
--- NOTE | 2020-09-14 22:39 | NUR ---
ROUNDS MADE. PATIENT IS DOING WORD PUZZLES AND HAS NO COMPLAINTS. IV SITE IS STILL INTACT WITHOUT S/SX OF EDEMA OR REDNESS. DRESSING REMAINS INTACT. INSTRUCTED PT TO CALL FOR ASSISTANCE. PT VOICED UNDERSTANDING.
[2020-09-14 23:52] VITALS: BP 127/54; TEMP 99.7
[2020-09-15 03:52] VITALS: BP 111/54; TEMP 99.8
[2020-09-15 06:24] LABS: PLATELET COUNT 219 K/uL (152-353)
[2020-09-15 06:49] LABS: POTASSIUM 4.4 mmol/L (3.6-5.2)
[2020-09-15 08:00] VITALS: BP 130/58; TEMP 99.1
--- NOTE | 2020-09-15 11:43 | NUR ---
ASSISTED PT UP TO BR AT THIS TIME. PT USED ROLLING WALKER. DRESSING TO RT HIP NOTED TO BE SATUARTED AND COMING OFF OF RT HIP. 4X4 AND ABD PADS NOTED TO HAVE OLD AND NEW SEROUS SANGRANIOUS FLUID TO ABD PADS. NEW 4X4 APPLIED ALONG WITH 2 ABD PADS AND SECURED WITH 3INCH TAPE. ALSO NOTED THAT IODAFORM PACKING REMAINED INTACT TO INCISION SITE. REDNESS AND SLIGHT WARMTH NOTED TO RT HIP. WILL CON'T TO MONITOTR.
[2020-09-15 12:00] VITALS: BP 156/79; TEMP 98.3
--- NOTE | 2020-09-15 14:30 | NUR ---
YAN PAUL PHONED AND INSTRUCTED ME TO GIVE PT DEMEROL 25MG IVP NOW THEN REMOVE PACKING AND THEN SHE WOULD COME TO SEE THE PT. WENT AND EXPLAINED TO PT YASMANY OVIEDO HAD INSTRUCTED ME AND VERBALIZED UNDERSTANIDNG
[2020-09-15 16:00] VITALS: BP 92/39; TEMP 98.5
--- NOTE | 2020-09-15 16:00 | NUR ---
DR PAUL HERE MAKING ROUNDS AT THIS TIME IN ROOM. VERBAL ORDERS REC'D TO PACK INCISION SITE WITH 2IN PLAIN IODOFORM AND APPLY 4X4 AND ABD PADS TO AREA. PT TOELRATED PROCEDURE WELL. REDNESS AND SLIGHT WARMTH NOTED TO SURRONDING TISSUES/I&D SITE. NO ACTIVE BLEEDING NOTED. WILL CON'T TO MONITOR.
--- NOTE | 2020-09-15 16:30 | NUR ---
WOUND TO RT HIP CLEANED AND PACKED WTIH 2INCH IODAFORDM PACKING PER MD ORDERS. WOUND APPROX 5CM IN DEPTH APPROX 0.5CM IN LENGTH. WOUND COVERED WITH 4X4'S AND ABD PADS X 2 AND MEDIPORE TAPE. 2 SMALL BLISTERS NOTED TO WHERE TAPE PLACED POST OP TO RT AND LEFT OUTER UPPER EDGES . MEDIPORE TAPE USED AND PLACED IN DIFFERENT AREAS. MD AREA. WILL CON'T TO MONITOR.
--- NOTE | 2020-09-15 19:40 | NUR ---
ENTERED PATIENT'S ROOM. PATIENT LYING IN BED WATCHING TV. 22G TO LEFT FA PATENT AND INTACT. NO ERYTHEMA OR SWELLING NOTED. SALINE LOCKED AT THIS TIME. RESPIRATIONS ARE EVEN AND UNLABORED. DRESSING TO RIGHT HIP/BUTTOCK C/D/I. NO DRAINAGE NOTED. SHE DENIES ANY PAIN, BUT STATES THAT SHE HASN'T HAD A BM SINCE SHE CAME TO THE HOSPITAL. REQUESTING SOMETHING FOR CONSTIPATION. I INFORMED HER THAT I WOULD NEED TO TALK TO DR. PAUL FIRST. SHE VERBALIZED UNDERSTANDING. NO OTHER CONCERNS VOICED AT THIS TIME. BED LOCKED AND IN LOWEST POSITION. CALL LIGHT WITHIN EASY REACH.
--- NOTE | 2020-09-15 19:55 | NUR ---
SPOKE WITH DR. PAUL VIA PHONE. INFORMED HER THAT PATIENT C/O CONSTIPATION. ORDERS GIVEN FOR: LACTULOSE 30ML ONE TIME DOSE NOW; SENNA-S 2 TABS BID. ORDERS READ BACK AND VERIFIED.
[2020-09-15 20:06] VITALS: BP 109/89; TEMP 98.6
--- NOTE | 2020-09-15 23:30 | NUR ---
IN TO START CLINDAMYCIN. ASSISTED PATIENT TO BATHROOM FIRST. APPROX. 600CC OF CLEAR, YELLOW URINE EMPTIED. PATIENT BACK IN BED. NAD NOTED. BED LOCKED AND IN LOWEST POSITION. CALL LIGHT WITHIN EASY REACH.
[2020-09-16] VITALS: BP 111/55; TEMP 98.3
[2020-09-16 04:00] VITALS: BP 112/57; TEMP 97.9
--- NOTE | 2020-09-16 05:54 | NUR ---
PATIENT RESTING QUIETLY WITH EYES CLOSED. RESPIRATIONS EVEN AND UNLABORED. NAD NOTED. 22G TO LEFT FA FLUSHED WITH NS. PATENT AND INTACT. NO ERYTHEMA OR SWELLING NOTED. CLINDAMYCIN INFUSING NOW. BED LOCKED AND IN LOWEST POSITION. CALL LIGHT WITHIN REACH.
[2020-09-16 05:59] LABS: PLATELET COUNT 205 K/uL (152-353)
[2020-09-16 06:28] LABS: POTASSIUM 4.6 mmol/L (3.6-5.2)
[2020-09-16 08:00] VITALS: BP 132/53; TEMP 97.8
[2020-09-16 12:00] VITALS: BP 123/45; TEMP 98
--- NOTE | 2020-09-16 14:17 | NUR ---
ASKED DR. PAUL IF SHE WANTED PT'S THIGH HIGH GWENDOLYN HOSE REPLACED BECAUSE PT WAS WEARING THEM WHEN SHE CAME IN AND PT STATES SHE WEARS THEM DAILY AT HOME, DR. PAUL STATES TO REPLACE GWENDOLYN HOSE AT THIS TIME, THIGH HIGH GWENDOLYN HOSE PLACED ON PT AT THIS TIME, PT TOLERATED WELL, NO FURTHER ORDERS GIVEN
--- NOTE | 2020-09-16 15:20 | NUR ---
DR. PAUL HERE AT PT'S BEDSIDE. REDNESS CON'T TO BE NOTED AROUND I AND D SITE. PURULENT DRAINAGE NOTED TO OUTTER DRESSING AT THIS TIME REMOVED BY DR. PAUL. PLAIN IODAFORM PACKING STILL IN PLACE. 2 INCHES PULLED BACK AND CUT OFF BY DR. PAUL. OUTTER DRY DRESSING REPLACED WITH 4X4'S AND ABD PADS, MEDIPORE TAPE USED TO HOLD DRESSING IN PLACE. BLISTER NOTED TO RIGHT HIP STILL INTACT. BLISTER NOTED TO RIGHT MEDIAL BUTTOCKS STILL INTACT AT THIS TIME. ORDERS REC'D TO LEAVE PACKING IN PLACE AND WILL REMOVE IN AM.
[2020-09-16 16:00] VITALS: BP 112/50; TEMP 98.1
--- NOTE | 2020-09-16 19:40 | NUR ---
PATIENT RESTING QUIETLY IN BED. RESPIRATIONS EVEN AND UNLABORED. CLINDAMYCIN FROM PREVIOUS SHIFT FINISHED. 22G TO LEFT WRIST FLUSHED WITH NS. PATENT AND INTACT. NO ERYTHEMA OR SWELLING NOTED. PATIENT DENIES PAIN OR OTHER COMPLAINTS. STATES SHE DID HAVE RECENT BM TODAY. BED LOCKED AND IN LOWEST POSITION. CALL LIGHT WITHIN REACH.
[2020-09-16 20:00] VITALS: BP 115/49; TEMP 98.4
[2020-09-17] VITALS: BP 99/48; TEMP 98.4
[2020-09-17 04:00] VITALS: BP 140/67; TEMP 97.9
--- NOTE | 2020-09-17 05:30 | NUR ---
PATIENT RESTING IN BED WITH EYES CLOSED. RESPIRATIONS EVEN AND UNLABORED. NAD NOTED. CLINDAMYCIN HUNG IVPB AT THIS TIME. 22G TO LEFT WRIST PATENT AND INTACT. BED LOCKED AND IN LOWEST POSITION. CALL LIGHT WITHIN EASY REACH.
[2020-09-17 05:55] LABS: PLATELET COUNT 226 K/uL (152-353)
[2020-09-17 06:14] LABS: POTASSIUM 4.1 mmol/L (3.6-5.2)
--- NOTE | 2020-09-17 06:17 | NUR ---
CLINDAMYCIN FINISHED. 22G TO LEFT WRIST SALINE LOCKED. PATENT AND INTACT. PATIENT RESTING QUIETLY IN BED WITH EYES CLOSED. NAD NOTED. CALL LIGHT WITHIN REACH.
[2020-09-17 08:00] VITALS: BP 103/49; TEMP 97.8
--- NOTE | 2020-09-17 09:02 | NUR ---
PT BP RECHECKED BEFORE MORNING MEDICATIONS, BP AT THIS TIME 144/66 AND HR IS 83, MORNING MEDS GIVEN AT THIS TIME
[2020-09-17 12:00] VITALS: BP 104/52; TEMP 97.9
[2020-09-17 16:00] VITALS: BP 121/62; TEMP 98.1
--- NOTE | 2020-09-17 17:00 | NUR ---
KIRTI MERCER REC'D AND FAXED TO LAB. 1700 DOSE HELD PER INSTRUCTIONS .
--- NOTE | 2020-09-17 17:18 | NUR ---
DR PAUL HERE AT THIS TIME. DRESSING REMOVED PER DR PAUL. VERBAL ORDERS REC'D TO PACK INCISION SITE WITH 1/2INCH PLAIN PACKING AND THEN APPLY 4X4 AND ABD PADS. SMALL AMT OF DRAINAGE NOTED AFTER PACKING REMOVED PER MD. DRAINAGE NOTED TO BE BLOODY. SMALL AMT OF DRAINAGE NOTED. AREA CLEANED WITH NS AND PACKED WITH 1/2INCH PACKING AND DRY 4X4'S WITH ABD PADS APPLIED. PT TOELRATED WELL.
[2020-09-17 20:03] VITALS: BP 124/64; TEMP 98.7
[2020-09-18] VITALS (7 sets, daily range): BP systolic 98–144; BP diastolic 43–60; TEMP 98–98.6
[2020-09-18 05:57] LABS: PLATELET COUNT 244 K/uL (152-353)
[2020-09-18 06:10] LABS: POTASSIUM 4.4 mmol/L (3.6-5.2)
--- NOTE | 2020-09-18 12:15 | NUR ---
PER DR. PAUL'S INSTRUCTIONS, INSERTED STERILE COTTON APPLICATOR INTO 1" WIDE INCISION ON RIGHT HIP APPROXIMATELY 1" DEEP, WAS UNABLE TO EXPLORE EXCEPT AREA DRAINED PREVIOUSLY IN OR BY PHYSICIAN. APPROXIMATELY 1 1/4" OF PLAIN WAS LOOSELY INSERTED INTO INCISION, TELFA PAD APPLIED OVER INCISION, 4X4 GAUZE PLACED OVER TELFA PAD AND ABDOMINAL PAD PLACED OVER ENTIRE SITE AND SECURED WITH MICROPORE TAPE. PATIENT TOLERATED WELL AND DENIES ANY PAIN, NEEDS OR C/O AT THIS TIME. PRIOR TO INSERTING STERILE TIPPED APPLICATOR, ABSCESSED AREA CLEANED WITH HIBACLEANSE. NOTIFIED DR. PAUL OF FINDINGS, PHYSICIAN V/O UNDERSTANDING, NO NEW ORDERS RECEIVED AT THIS TIME. CALL LIGHT AND BEDSIDE TABLE WITH PERSONAL BELONGINGS WITHIN REACH. PATIENT INSTRUCTED TO CALL FOR ANY ASSISTANCE OR NEEDS, PT V/O UNDERSTANDING.
--- NOTE | 2020-09-18 23:50 | NUR ---
PATIENT DENIES ANY PAIN AND SURGICAL SITE HAS MINIMAL SANGENOUS DRAINAGE. PATIETN IS UP TO THE [facility] WITH LIMMITED ASSISTANCE
--- NOTE | 2020-09-19 01:34 | NUR ---
PATIENT IS UP TO THE [facility] WITH STANDBY ASSIST
--- NOTE | 2020-09-19 03:39 | NUR ---
PATIENT REPORTS HSE HAS BEEN RESTING WELL ALL NIGHT SO FAR AND DENIES ANY PAIN
[2020-09-19 03:48] VITALS: BP 106/49; TEMP 98.2
--- NOTE | 2020-09-19 06:05 | NUR ---
PATIENT DENIES ANY PAIIN. WOUND SIGHT IS CLEAN WITH ONLY A SMALLY AMOUNT OF SANGENEOUS DRAINAGE
[2020-09-19 07:34] VITALS: BP 123/71; TEMP 98
[2020-09-19 08:14] LABS: PLATELET COUNT 259 K/uL (152-353)
[2020-09-19 08:36] LABS: POTASSIUM 4.3 mmol/L (3.6-5.2)
[2020-09-19 12:00] VITALS: BP 112/58; TEMP 98
--- NOTE | 2020-09-19 13:10 | NUR ---
DR. PAUL AT BEDSIDE AND REMOVED DRESSING TO RIGHT HIP. BACTRIBAN PLACED ON INCISION, COVERED WITH FOLDED 4X4 GAUZE, AND TEGADERM PLACED OVER DRESSING. PATIENT TOLERATED WELL AND DENIES ANY PAIN, NEEDS OR C/O. NO S/SX OF DISTRESS NOTED AT THIS TIME. BED SIDE TABLE AND CALL LIGHT WITHIN REACH.
--- NOTE | 2020-09-19 15:10 | NUR ---
PATIENT'S IV D/C'D WITH TIP IN TACT. DISCHARGE INSTRUCTIONS EXPLAINED TO PATIENT ALONG WITH WOUND CARE AND TO CONTINUE HOME MEDICATIONS. PATIENT V/O UNDERSTANDING AND DENIES ANY FURTHER QUESTIONS OR C/O AT THIS TIME. PATIENT TAKEN TO POV VIA WHEELCHAIR, ASSISTED PATIENT INTO POV WITH DAUGHTER AT BEDSIDE. NO S/SX OF DISTRESS NOTED AT THIS TIME. PT DENIES ANY NEEDS OR C/O.
== END 2020-09-19 15:10 | disposition home or self-care (01) | DRG 580 ==
LOC: MED/SURG 15:36
PROVIDERS: ADMIT Family Medicine; ATTEND Family Medicine
PROC: 0J990ZZ Drainage of Buttock Subcutaneous Tissue and Fascia, Open Approach (ICD-10-PCS; principal; 2020-09-13)
DX: L02.31 Cutaneous abscess of buttock (principal); E46 Unspecified protein-calorie malnutrition; E11.42 Type 2 diabetes mellitus with diabetic polyneuropathy; I10 Essential (primary) hypertension; M15.8 Other polyosteoarthritis; D64.89 Other specified anemias; I48.0 Paroxysmal atrial fibrillation; Z79.01 Long term (current) use of anticoagulants; E66.8 Other obesity; Z91.14 Patient's other noncompliance with medication regimen; E87.8 Other disorders of electrolyte and fluid balance, not elsewhere classified
CPT/HCPCS: 36415; 80053; 80202; 81000; 82948; 83605; 83735; 83880; 84100; 85027; 85610; 87040; 87070; 87077; 87086; 87088; 87185; 87186; 87205; 87635; 96365; 96367; 96375; J1450; J1815; J2001; J2175; J2704; J3370; J3475; J3490; Q9963; U0003

== ENCOUNTER 2020-12-01 12:27 | Inpatient (IN) | payer OTHER ==
[~2020-12-01] VITALS: Ht 165.1 cm; Wt 117.0 kg
[~2020-12-01 12:27] MED LIST changes: +CALCI20 PO; +FAMOTIDINE40 MG PO; +GABA300C2 PO; +IRON PO; +IS-ZC 50 50 MG1 TAB PO; +OMEGA 31000 MG PO; +PRENATA1 PO; +SPIRONOLACT50 MG PO; +VISION FORMULA1 TAB PO; +VITAMIN C1000 MG PO
[2020-12-15 13:57] LABS: POTASSIUM 5.7 mmol/L (3.6-5.2); SODIUM 136 mmol/L (136-145)
[2020-12-15 14:00] LABS: POTASSIUM 5.4 mmol/L (3.6-5.2); SODIUM 137 mmol/L (136-145)
[2020-12-15 14:18] LABS: POTASSIUM 5.2 mmol/L (3.6-5.2); SODIUM 137 mmol/L (136-145)
[2020-12-16 09:44] LABS: PLATELET COUNT 163 K/uL (152-353)
[2020-12-16 09:45] LABS: POTASSIUM 4.6 mmol/L (3.6-5.2); SODIUM 136 mmol/L (136-145)
[2020-12-17 05:50] LABS: PLATELET COUNT 164 K/uL (152-353)
[2020-12-17 05:51] LABS: POTASSIUM 4.2 mmol/L (3.6-5.2)
[2020-12-17 12:32] LABS: PLATELET COUNT 136 K/uL (152-353)
[2020-12-17 12:33] LABS: POTASSIUM 4.2 mmol/L (3.6-5.2)
[2020-12-18 06:15] LABS: PARTIAL THROMBOPLASTIN TIME 36.9 SECONDS (24.5-33.6)
[2020-12-18 06:16] LABS: PLATELET COUNT 132 K/uL (152-353)
[2020-12-18 06:17] LABS: POTASSIUM 5.2 mmol/L (3.6-5.2)
== END 2020-12-07 12:24 | disposition swing bed (61) | DRG 558 ==
LOC: LABW 12:27 → MED/SURG 15:30
PROVIDERS: ADMIT Family Medicine; ATTEND Family Medicine
DX: M62.82 Rhabdomyolysis (principal); R07.89 Other chest pain; D64.89 Other specified anemias; E11.9 Type 2 diabetes mellitus without complications; E66.8 Other obesity; M15.9 Polyosteoarthritis, unspecified; K31.84 Gastroparesis; E88.81 Metabolic syndrome and other insulin resistance; M25.511 Pain in right shoulder; Z79.01 Long term (current) use of anticoagulants; K59.09 Other constipation; R62.7 Adult failure to thrive; E87.8 Other disorders of electrolyte and fluid balance, not elsewhere classified; M62.81 Muscle weakness (generalized); Z74.1 Need for assistance with personal care; M54.17 Radiculopathy, lumbosacral region; R59.0 Localized enlarged lymph nodes; I48.91 Unspecified atrial fibrillation; B37.2 Candidiasis of skin and nail
CPT/HCPCS: 36415; 80048; 80053; 82550; 82553; 82948; 83735; 83880; 84100; 84132; 84484; 85027; 85610; 85730; 93005; 96365; 96366; 96374; J1885; J1940; J2270; J2765; J3475; Q9963

== ENCOUNTER 2020-12-07 12:24 | Inpatient (IN) | payer OTHER ==
--- NOTE | 2020-12-15 11:15 | NUR ---
PATIENT REQUESTED [facility] FOR OUTPATIENT SERVICES AND FOR DME EQUIPMENT (BEDSIDE COMMODE) ORDER TO BE SENT TO CERTIFIED RESPIRATORY.
[2020-12-17 08:07] LABS: PLATELET COUNT 80 K/uL (152-353)
[2020-12-17 08:08] LABS: POTASSIUM 4.5 mmol/L (3.6-5.2)
== END 2020-12-15 16:35 | disposition home health service (06) | DRG 558 ==
LOC: MED/SURG 12:24
PROVIDERS: ADMIT Family Medicine; ATTEND Family Medicine
DX: M62.82 Rhabdomyolysis (principal); E11.43 Type 2 diabetes mellitus with diabetic autonomic (poly)neuropathy; E66.01 Morbid (severe) obesity due to excess calories; M25.511 Pain in right shoulder; M25.512 Pain in left shoulder; I48.91 Unspecified atrial fibrillation; R53.81 Other malaise; M62.81 Muscle weakness (generalized); Z74.1 Need for assistance with personal care; R26.2 Difficulty in walking, not elsewhere classified; B37.2 Candidiasis of skin and nail; Z79.01 Long term (current) use of anticoagulants; I10 Essential (primary) hypertension; M15.9 Polyosteoarthritis, unspecified; D64.9 Anemia, unspecified; E88.81 Metabolic syndrome and other insulin resistance; E03.9 Hypothyroidism, unspecified; R06.02 Shortness of breath; F41.9 Anxiety disorder, unspecified; E78.5 Hyperlipidemia, unspecified; F32.9 Major depressive disorder, single episode, unspecified; Z85.3 Personal history of malignant neoplasm of breast
CPT/HCPCS: 36415; 80053; 83735; 84100; 85027; 85610; 94664; 94760

== ENCOUNTER 2020-12-28 12:33 | Outpatient (CLI) | payer OTHER | END 2020-12-28 19:10 | disposition home or self-care (01) | LOC: MRI 12:33 | PROVIDERS: ATTEND Family Medicine | DX: M25.551 Pain in right hip (principal) ==

== ENCOUNTER 2021-01-11 13:20 | Outpatient (CLI) | payer OTHER ==
[~2021-01-11] VITALS: Ht 165.1 cm; Wt 113.5 kg
[2021-01-11 14:36] VITALS: BP 134/70; TEMP 98.2
== END 2021-01-11 22:08 | disposition home or self-care (01) ==
LOC: INF 13:20
PROVIDERS: ATTEND Family Medicine
DX: M81.0 Age-related osteoporosis without current pathological fracture (principal)
CPT/HCPCS: 36415; 82310; 96372; J0897

== ENCOUNTER 2021-06-05 11:42 | Outpatient (CLI) | payer OTHER | END 2021-06-05 18:52 | disposition home or self-care (01) | LOC: RAD 11:42 | PROVIDERS: ATTEND Nurse Practitioner Primary Care | DX: J20.8 Acute bronchitis due to other specified organisms (principal) ==

== ENCOUNTER 2021-06-29 12:26 | Outpatient (CLI) | payer OTHER ==
[2021-06-29 13:45] LABS: POTASSIUM 5.6 mmol/L (3.6-5.2)
[2021-06-29 14:00] LABS: PLATELET COUNT 223 K/uL (152-353)
== END 2021-06-29 20:42 | disposition home or self-care (01) ==
LOC: RAD 12:26
PROVIDERS: ATTEND Family Medicine
DX: Z20.822 Contact with and (suspected) exposure to COVID-19 (principal); I50.9 Heart failure, unspecified
CPT/HCPCS: 36415; 80053; 82550; 82728; 83880; 84484; 85027; 85379; 86140

== ENCOUNTER 2021-07-03 10:51 | Outpatient (CLI) | payer OTHER ==
[2021-07-03 14:13] LABS: POTASSIUM 5.4 mmol/L (3.6-5.2)
[2021-07-03 14:19] LABS: PLATELET COUNT 212 K/uL (152-353)
== END 2021-07-03 18:53 | disposition home or self-care (01) ==
LOC: LABW 10:51
PROVIDERS: ATTEND Nurse Practitioner Family
DX: I50.9 Heart failure, unspecified (principal)
CPT/HCPCS: 80053; 85027

== ENCOUNTER 2021-07-28 15:51 | Emergency (ER) | payer OTHER ==
[~2021-07-28] VITALS: Ht 165.1 cm; Wt 113.4 kg
[2021-07-28 16:53] LABS: PLATELET COUNT 196 K/uL (152-353)
[2021-07-28 17:02] LABS: POTASSIUM 4.7 mmol/L (3.6-5.2)
[2021-07-28 17:07] LABS: PARTIAL THROMBOPLASTIN TIME 30.1 SECONDS (24.5-33.6)
[2021-07-28 20:50] VITALS: BP 119/59; TEMP 97.5
== END 2021-07-28 20:50 | disposition home or self-care (01) ==
LOC: ED 15:51
PROVIDERS: Family Medicine
DX: S20.211A Contusion of right front wall of thorax, initial encounter (principal); M47.812 Spondylosis without myelopathy or radiculopathy, cervical region; M25.551 Pain in right hip; W01.198A Fall on same level from slipping, tripping and stumbling with subsequent striking against other object, initial encounter; Y92.098 Other place in other non-institutional residence as the place of occurrence of the external cause
CPT/HCPCS: 80053; 82550; 84484; 85027; 85610; 85730; 93005; 96374; 96375; 99284; J2270; J2405

== ENCOUNTER 2021-07-30 16:28 | Observation (INO) | payer OTHER ==
[~2021-07-30] VITALS: Ht 165.1 cm; Wt 120.7 kg
[2021-07-30 17:10] VITALS: BP 95/60; TEMP 97.7; Ht 165.1 cm; Wt 120.7 kg
[2021-07-30 18:48] LABS: PLATELET COUNT 151 K/uL (152-353)
[2021-07-30 20:00] VITALS: BP 78/37; BP 90/60; TEMP 97.6
[2021-07-30 23:26] VITALS: BP 84/37; TEMP 97.6
[2021-07-30 23:50] VITALS: BP 86/42; TEMP 97.8
[2021-07-31] VITALS (16 sets, daily range): BP systolic 84–128; BP diastolic 37–72; TEMP 97.6–99.9
[2021-07-31 11:58] LABS: PLATELET COUNT 148 K/uL (152-353)
[2021-07-31 13:07] LABS: POTASSIUM 4.7 mmol/L (3.6-5.2)
[2021-08-01] VITALS: BP 104/49; TEMP 99.3
[2021-08-01 04:00] VITALS: BP 132/66; TEMP 98.7
[2021-08-01 05:55] LABS: PLATELET COUNT 176 K/uL (152-353)
[2021-08-01 06:19] LABS: POTASSIUM 4.6 mmol/L (3.6-5.2)
[2021-08-01 06:21] LABS: PARTIAL THROMBOPLASTIN TIME 30.5 SECONDS (24.5-33.6)
[2021-08-01 08:00] VITALS: BP 146/72; TEMP 98.5
[2021-08-01 12:00] VITALS: BP 149/74; TEMP 98.6
[2021-08-01 16:00] VITALS: BP 90/57; TEMP 99.1
== END 2021-08-01 19:09 | disposition home or self-care (01) ==
LOC: MED/SURG 16:28
PROVIDERS: ADMIT Family Medicine; ATTEND Family Medicine
PROC: 30233N1 Transfusion of Nonautologous Red Blood Cells into Peripheral Vein, Percutaneous Approach (ICD-10-PCS; principal; 2021-07-30)
PROC: 30233N1 Transfusion of Nonautologous Red Blood Cells into Peripheral Vein, Percutaneous Approach (ICD-10-PCS; 2021-07-31)
DX: D50.0 Iron deficiency anemia secondary to blood loss (chronic) (principal); Z79.01 Long term (current) use of anticoagulants; T14.8XXA Other injury of unspecified body region, initial encounter; M62.81 Muscle weakness (generalized); E03.8 Other specified hypothyroidism; E78.49 Other hyperlipidemia; G25.81 Restless legs syndrome; F32.89 Other specified depressive episodes; I48.91 Unspecified atrial fibrillation; I11.0 Hypertensive heart disease with heart failure; I50.9 Heart failure, unspecified; K21.9 Gastro-esophageal reflux disease without esophagitis; Y92.9 Unspecified place or not applicable; R10.9 Unspecified abdominal pain
CPT/HCPCS: 36415; 36430; 80053; 82272; 82550; 82948; 83735; 83880; 84100; 84484; 85014; 85018; 85027; 85610; 85730; 86850; 86900; 86901; 86922; 87040; 87635; 93005; 94760; 96372; 96374; 96375; 99220; G0378; G0379; P9016; U0003

== ENCOUNTER 2021-08-08 11:02 | Outpatient (CLI) | payer OTHER ==
[2021-08-08 11:20] LABS: PLATELET COUNT 175 K/uL (152-353)
[2021-08-08 11:29] LABS: POTASSIUM 4.6 mmol/L (3.6-5.2)
== END 2021-08-08 19:22 | disposition home or self-care (01) ==
LOC: LABW 11:02
PROVIDERS: ATTEND Internal Medicine Cardiovascular Disease
DX: D64.9 Anemia, unspecified (principal); Z79.899 Other long term (current) drug therapy
CPT/HCPCS: 36415; 80053; 80061; 83540; 83550; 85027

== ENCOUNTER 2021-09-10 12:46 | Outpatient (CLI) | payer OTHER ==
[2021-09-10 13:09] LABS: POTASSIUM 4.4 mmol/L (3.6-5.2)
== END 2021-09-10 18:59 | disposition home or self-care (01) ==
LOC: LAB 12:46
PROVIDERS: ATTEND Internal Medicine Cardiovascular Disease
DX: I11.0 Hypertensive heart disease with heart failure (principal); I50.9 Heart failure, unspecified; Z79.899 Other long term (current) drug therapy
CPT/HCPCS: 80048; 83880

== ENCOUNTER 2021-10-31 11:27 | Outpatient (CLI) | payer OTHER ==
[2021-10-31 11:51] LABS: PLATELET COUNT 201 K/uL (152-353)
[2021-10-31 16:03] LABS: POTASSIUM 4.9 mmol/L (3.6-5.2)
== END 2021-10-31 19:20 | disposition home or self-care (01) ==
LOC: LABW 11:27
PROVIDERS: ATTEND Internal Medicine Cardiovascular Disease
DX: Z79.899 Other long term (current) drug therapy (principal); R06.09 Other forms of dyspnea
CPT/HCPCS: 36415; 80048; 83880; 85027

== ENCOUNTER 2021-11-23 09:25 | Outpatient (CLI) | payer OTHER | END 2021-11-23 20:25 | disposition home or self-care (01) | LOC: LAB 09:25 | PROVIDERS: ATTEND Nurse Practitioner Family | DX: Z79.01 Long term (current) use of anticoagulants (principal) | CPT/HCPCS: 82272 ==

== ENCOUNTER 2021-12-14 13:26 | Outpatient (CLI) | payer OTHER ==
[~2021-12-14] VITALS: Ht 162.6 cm; Wt 115.2 kg
[2021-12-14 13:42] LABS: PLATELET COUNT 200 K/uL (152-353)
[2021-12-14 13:56] LABS: POTASSIUM 4.8 mmol/L (3.6-5.2)
== END 2021-12-14 21:19 | disposition home or self-care (01) ==
LOC: LABW 13:26 → LAB 13:26 → INF 13:26
PROVIDERS: ATTEND Nurse Practitioner Family
DX: E86.0 Dehydration (principal)
CPT/HCPCS: 36415; 80053; 81002; 85027; 96360; 96361

== ENCOUNTER 2021-12-15 12:08 | Outpatient (CLI) | payer OTHER ==
[~2021-12-15] VITALS: Ht 162.6 cm; Wt 115.0 kg
[2021-12-15 12:43] LABS: PLATELET COUNT 221 K/uL (152-353)
[2021-12-15 12:49] LABS: POTASSIUM 4.6 mmol/L (3.6-5.2)
== END 2021-12-15 19:44 | disposition home or self-care (01) ==
LOC: INF 12:08 → LABW 12:08 → INF 19:44
PROVIDERS: ATTEND Nurse Practitioner Family
DX: E86.0 Dehydration (principal); N19 Unspecified kidney failure; N39.0 Urinary tract infection, site not specified; B96.29 Other Escherichia coli [E. coli] as the cause of diseases classified elsewhere
CPT/HCPCS: 36415; 80053; 81002; 81015; 85027; 87077; 87086; 87088; 87186; 96360; 96361

== ENCOUNTER 2021-12-20 17:29 | Emergency (ER) | payer OTHER ==
[~2021-12-20] VITALS: Ht 162.6 cm; Wt 114.8 kg
[2021-12-20 17:38] VITALS: TEMP 97.2
[2021-12-20 18:42] LABS: PLATELET COUNT 208 K/uL (152-353)
[2021-12-20 18:44] LABS: POTASSIUM 4.7 mmol/L (3.6-5.2)
[2021-12-20 18:59] LABS: PARTIAL THROMBOPLASTIN TIME 29.4 SECONDS (24.5-33.6)
[2021-12-21 07:00] VITALS: BP 140/77
== END 2021-12-21 07:00 | disposition short-term general hospital (02) ==
LOC: ED 17:29
PROVIDERS: Emergency Medicine
DX: N17.8 Other acute kidney failure (principal); E87.1 Hypo-osmolality and hyponatremia; I48.91 Unspecified atrial fibrillation; Z79.01 Long term (current) use of anticoagulants; E86.0 Dehydration; N39.0 Urinary tract infection, site not specified; R60.0 Localized edema; Z11.52 Encounter for screening for COVID-19
CPT/HCPCS: 36415; 80053; 81002; 81015; 83880; 84484; 85027; 85610; 85730; 87077; 87086; 87088; 87186; 87635; 93005; 96360; 96361; 99284; U0003

== ENCOUNTER 2022-01-09 09:49 | Outpatient (CLI) | payer OTHER | END 2022-01-09 19:18 | disposition home or self-care (01) | LOC: RESP 09:49 | PROVIDERS: ATTEND Nurse Practitioner Family | DX: I95.89 Other hypotension (principal) ==

== ENCOUNTER 2022-03-29 10:44 | Outpatient (CLI) | payer OTHER ==
[2022-03-29 11:29] LABS: POTASSIUM 4.1 mmol/L (3.6-5.2)
== END 2022-03-29 20:33 | disposition home or self-care (01) ==
LOC: LABW 10:44
PROVIDERS: ATTEND Student in an Organized Health Care Education/Training Program
DX: N17.9 Acute kidney failure, unspecified (principal); Z79.1 Long term (current) use of non-steroidal anti-inflammatories (NSAID); R80.8 Other proteinuria; E55.9 Vitamin D deficiency, unspecified; N25.81 Secondary hyperparathyroidism of renal origin; N18.31 Chronic kidney disease, stage 3a; E79.0 Hyperuricemia without signs of inflammatory arthritis and tophaceous disease; I12.9 Hypertensive chronic kidney disease with stage 1 through stage 4 chronic kidney disease, or unspecified chronic kidney disease
CPT/HCPCS: 36415; 80053; 81002; 82306; 82570; 83735; 83970; 84100; 84156; 84550; 85018

== ENCOUNTER 2022-07-01 14:44 | Emergency (ER) | payer OTHER ==
[~2022-07-01] VITALS: Ht 162.6 cm; Wt 114.8 kg
[2022-07-01 14:45] VITALS: BP 142/69; TEMP 98.3
[2022-07-01 15:37] LABS: PLATELET COUNT 213 K/uL (152-353)
[2022-07-01 15:48] LABS: POTASSIUM 4.4 mmol/L (3.6-5.2)
== END 2022-07-01 18:30 | disposition home or self-care (01) ==
LOC: ED 14:44
PROVIDERS: Emergency Medicine Emergency Medical Services
DX: S00.83XA Contusion of other part of head, initial encounter (principal); R55 Syncope and collapse; W18.12XA Fall from or off toilet with subsequent striking against object, initial encounter; Y92.89 Other specified places as the place of occurrence of the external cause
CPT/HCPCS: 36415; 80048; 84484; 85027; 90471; 93005; 99283

== ENCOUNTER 2022-07-31 11:30 | Outpatient (CLI) | payer OTHER ==
[2022-07-31 11:55] LABS: PLATELET COUNT 194 K/uL (152-353)
[2022-07-31 12:02] LABS: POTASSIUM 4.1 mmol/L (3.6-5.2)
== END 2022-07-31 18:57 | disposition home or self-care (01) ==
LOC: LABW 11:30
PROVIDERS: ATTEND Student in an Organized Health Care Education/Training Program
DX: N17.9 Acute kidney failure, unspecified (principal); Z79.1 Long term (current) use of non-steroidal anti-inflammatories (NSAID); R80.8 Other proteinuria; E55.9 Vitamin D deficiency, unspecified; N25.81 Secondary hyperparathyroidism of renal origin; N18.31 Chronic kidney disease, stage 3a; E79.0 Hyperuricemia without signs of inflammatory arthritis and tophaceous disease; I12.9 Hypertensive chronic kidney disease with stage 1 through stage 4 chronic kidney disease, or unspecified chronic kidney disease
CPT/HCPCS: 36415; 80053; 81000; 82306; 82570; 83735; 83970; 84100; 84156; 84550; 85027; 87086; 87088

== ENCOUNTER 2022-08-19 13:41 | Outpatient (CLI) | payer OTHER ==
[2022-08-19 14:21] LABS: PLATELET COUNT 229 K/uL (152-353)
[2022-08-19 14:25] LABS: POTASSIUM 3.8 mmol/L (3.6-5.2)
== END 2022-08-19 20:53 | disposition home or self-care (01) ==
LOC: LABW 13:41
PROVIDERS: ATTEND Nurse Practitioner Family
DX: R06.09 Other forms of dyspnea (principal); R73.9 Hyperglycemia, unspecified
CPT/HCPCS: 36415; 80053; 82550; 82553; 83036; 83880; 84484; 85027; 85379; 93005

== ENCOUNTER 2022-08-22 08:53 | Outpatient (CLI) | payer OTHER | END 2022-08-22 17:00 | disposition home or self-care (01) | LOC: NM 08:53 | PROVIDERS: ATTEND Nurse Practitioner Family | DX: R79.1 Abnormal coagulation profile (principal) | CPT/HCPCS: A9540; A9567 ==

== ENCOUNTER 2022-09-05 18:45 | Inpatient (IN) | payer OTHER ==
[~2022-09-05 18:45] MED LIST changes: +BUMEX0.5 MG PO; +ELIQUIS5 MG PO; +MIRALAX17 GM PO; +MUPI2OIN2 TOP; +OCUVITE PO; +PRAVASTATIN PO; -SEROQUEL50 MG OR; +SEROQUEL50 MG PO; +[UNRECOGNIZED DRUG - OTHER] PO
== END 2022-09-14 12:11 | disposition still patient (30) ==
LOC: PAVB 18:45
PROVIDERS: ADMIT Family Medicine; ATTEND Family Medicine
DX: D64.9 Anemia, unspecified (principal); M62.81 Muscle weakness (generalized); R26.81 Unsteadiness on feet; Z74.1 Need for assistance with personal care; R41.841 Cognitive communication deficit
CPT/HCPCS: 87081

== ENCOUNTER 2022-09-14 12:22 | Inpatient (IN) | payer OTHER | END 2022-09-20 12:00 | disposition home or self-care (01) | LOC: PAVB 12:22 | PROVIDERS: ADMIT Family Medicine; ATTEND Family Medicine | DX: D64.9 Anemia, unspecified (principal); M62.81 Muscle weakness (generalized); R26.81 Unsteadiness on feet; Z74.1 Need for assistance with personal care; R41.841 Cognitive communication deficit ==

== ENCOUNTER 2022-09-23 09:52 | Outpatient (CLI) | payer OTHER ==
[2022-09-23 10:08] LABS: PLATELET COUNT 240 K/uL (152-353)
[2022-09-23 10:36] LABS: POTASSIUM 4.3 mmol/L (3.6-5.2)
== END 2022-09-23 19:00 | disposition home or self-care (01) ==
LOC: LABW 09:52
PROVIDERS: ATTEND Internal Medicine Cardiovascular Disease
DX: I10 Essential (primary) hypertension (principal); D64.9 Anemia, unspecified; R06.02 Shortness of breath
CPT/HCPCS: 36415; 80053; 82728; 83540; 83550; 83880; 85027

== ENCOUNTER 2022-09-24 21:52 | Inpatient (IN) | payer OTHER ==
[~2022-09-24] VITALS: Ht 165.1 cm; Wt 112.5 kg
[2022-09-24 22:14] VITALS: BP 132/79; TEMP 98.2
[2022-09-24 22:30] VITALS: BP 115/70
[2022-09-24 22:40] LABS: PLATELET COUNT 242 K/uL (152-353)
[2022-09-24 22:50] LABS: POTASSIUM 4.9 mmol/L (3.6-5.2)
[2022-09-25 02:21] VITALS: BP 142/66; TEMP 98.6; Ht 165.1 cm; Wt 112.5 kg
[2022-09-25 04:00] VITALS: BP 130/70; TEMP 99.5
[2022-09-25 07:48] VITALS: BP 124/83; TEMP 98.4
[2022-09-25 07:53] LABS: PLATELET COUNT 233 K/uL (152-353)
[2022-09-25 08:20] LABS: POTASSIUM 4.7 mmol/L (3.6-5.2)
[2022-09-25 12:00] VITALS: BP 115/86; TEMP 98.6
[2022-09-25 16:00] VITALS: BP 126/67; TEMP 98
[2022-09-25 20:00] VITALS: BP 117/61; TEMP 97.5
[2022-09-26] VITALS: BP 130/72; TEMP 98.5
[2022-09-26 04:00] VITALS: BP 82/50; TEMP 98.3
[2022-09-26 04:02] LABS: PLATELET COUNT 200 K/uL (152-353)
[2022-09-26 04:24] LABS: POTASSIUM 4.2 mmol/L (3.6-5.2)
[2022-09-26 08:00] VITALS: BP 132/69; TEMP 98.9
[2022-09-26 12:00] VITALS: BP 104/60; TEMP 98.5
[2022-09-26 16:00] VITALS: BP 107/50; TEMP 98.2
[2022-09-26 20:00] VITALS: BP 91/47; TEMP 99.5
[2022-09-27] VITALS (7 sets, daily range): BP systolic 91–144; BP diastolic 57–88; TEMP 98–98.9
[2022-09-27 04:17] LABS: PLATELET COUNT 199 K/uL (152-353)
[2022-09-27 05:51] LABS: POTASSIUM 4.1 mmol/L (3.6-5.2)
[2022-09-28 03:31] VITALS: BP 103/56; TEMP 97.6
[2022-09-28 07:49] VITALS: BP 103/55; TEMP 98.1
[2022-09-28 12:03] VITALS: BP 107/61; TEMP 98
[2022-09-28 15:54] VITALS: BP 106/56; TEMP 97.9
[2022-09-28 19:51] VITALS: BP 116/56; TEMP 98.5
[2022-09-29] VITALS (7 sets, daily range): BP systolic 103–156; BP diastolic 60–97; TEMP 97.9–98.9
[2022-09-30 03:35] VITALS: BP 111/85; TEMP 98.6
[2022-09-30 05:30] LABS: PLATELET COUNT 246 K/uL (152-353)
[2022-09-30 05:34] LABS: POTASSIUM 4.3 mmol/L (3.6-5.2)
[2022-09-30 08:00] VITALS: BP 111/78; TEMP 98.3
[2022-09-30 12:11] VITALS: BP 126/69; TEMP 98.3
[2022-09-30 16:20] VITALS: BP 118/70; TEMP 98.3
[2022-09-30 20:05] VITALS: BP 117/62; TEMP 98.4
[2022-10-01] VITALS: BP 106/67; TEMP 98.5
[2022-10-01 04:00] VITALS: BP 102/63; TEMP 98.4
[2022-10-01 08:00] VITALS: BP 121/85; TEMP 97.9
[2022-10-01 12:00] VITALS: BP 118/65; TEMP 97.8
[2022-10-01 16:00] VITALS: BP 108/53; TEMP 97.9
[2022-10-01 20:00] VITALS: BP 148/88; TEMP 98.3
[2022-10-02] VITALS (7 sets, daily range): BP systolic 97–134; BP diastolic 46–70; TEMP 97.7–98.6
[2022-10-02 05:34] LABS: PLATELET COUNT 281 K/uL (152-353)
[2022-10-02 05:37] LABS: POTASSIUM 4.4 mmol/L (3.6-5.2)
[2022-10-03 03:47] VITALS: BP 97/64; TEMP 98.3
[2022-10-03 08:00] VITALS: BP 103/70; TEMP 97.5
[2022-10-03] MEDS ORDERED: SODI1TAB PO (10:22)
[2022-10-03 12:00] VITALS: BP 107/65; TEMP 97.9
== END 2022-10-03 14:10 | DRG 308 ==
LOC: ED 21:52 → MED/SURG 09-25 00:20
PROVIDERS: ADMIT Internal Medicine; ATTEND Internal Medicine
DX: I48.20 Chronic atrial fibrillation, unspecified (principal); J18.9 Pneumonia, unspecified organism; E87.1 Hypo-osmolality and hyponatremia; R06.02 Shortness of breath; D72.828 Other elevated white blood cell count; N18.31 Chronic kidney disease, stage 3a; R09.89 Other specified symptoms and signs involving the circulatory and respiratory systems; K59.09 Other constipation; B37.2 Candidiasis of skin and nail; I35.0 Nonrheumatic aortic (valve) stenosis; I34.2 Nonrheumatic mitral (valve) stenosis; E03.8 Other specified hypothyroidism; K21.9 Gastro-esophageal reflux disease without esophagitis; F32.89 Other specified depressive episodes; R53.1 Weakness; R26.81 Unsteadiness on feet; Z79.01 Long term (current) use of anticoagulants
CPT/HCPCS: 36415; 80053; 82948; 84484; 85027; 87040; 93005; 94760; 96365; 96367; 96368; 96375; 99284; J0692; J1940; J1956; J3490

== ENCOUNTER 2022-10-14 14:32 | Inpatient (IN) | payer OTHER ==
[~2022-10-14 14:32] MED LIST changes: +SODI1TAB PO
[2022-10-27 12:22] LABS: POTASSIUM 5.1 mmol/L (3.6-5.2)
[2022-10-27 12:32] LABS: PLATELET COUNT 166 K/uL (152-353)
== END 2022-11-14 11:30 | disposition still patient (30) ==
LOC: PAVB 14:32
PROVIDERS: ADMIT Family Medicine; ATTEND Family Medicine
CPT/HCPCS: 80053; 83880; 85027; 94667; 94668

== ENCOUNTER 2022-11-12 07:56 | Outpatient (CLI) | payer OTHER ==
[2022-11-12 08:27] LABS: POTASSIUM 4.5 mmol/L (3.6-5.2)
== END 2022-11-12 20:34 ==
LOC: LAB 07:56
PROVIDERS: ATTEND Family Medicine
DX: R60.0 Localized edema (principal); I50.9 Heart failure, unspecified
CPT/HCPCS: 80048

== ENCOUNTER 2022-11-14 11:43 | Inpatient (IN) | payer OTHER | END 2022-12-14 17:38 | disposition still patient (30) | LOC: PAVB 11:43 | PROVIDERS: ADMIT Family Medicine; ATTEND Family Medicine ==

== ENCOUNTER 2022-12-03 08:14 | Outpatient (CLI) | payer OTHER ==
[2022-12-03 08:46] LABS: PLATELET COUNT 201 K/uL (152-353)
[2022-12-03 08:53] LABS: POTASSIUM 4.4 mmol/L (3.6-5.2)
== END 2022-12-03 19:05 | disposition home or self-care (01) ==
LOC: LAB 08:14
PROVIDERS: ATTEND Family Medicine
DX: I12.9 Hypertensive chronic kidney disease with stage 1 through stage 4 chronic kidney disease, or unspecified chronic kidney disease (principal); N18.31 Chronic kidney disease, stage 3a; I50.9 Heart failure, unspecified; I11.0 Hypertensive heart disease with heart failure
CPT/HCPCS: 80048; 85027; 85610

== ENCOUNTER 2022-12-19 12:54 | Emergency (ER) | payer OTHER ==
[~2022-12-19] VITALS: Ht 165.1 cm; Wt 107.0 kg
[2022-12-19 14:25] LABS: PLATELET COUNT 175 K/uL (152-353)
[2022-12-19 14:38] LABS: POTASSIUM 4.9 mmol/L (3.6-5.2)
[2022-12-19 14:59] LABS: PARTIAL THROMBOPLASTIN TIME 32.2 SECONDS (23.9-36.7)
[2022-12-19 18:19] VITALS: BP 109/54; TEMP 97.7
== END 2022-12-19 18:19 | disposition short-term general hospital (02) ==
LOC: ED 12:54
PROVIDERS: Family Medicine
DX: D64.9 Anemia, unspecified (principal); E87.1 Hypo-osmolality and hyponatremia; E66.9 Obesity, unspecified; J98.4 Other disorders of lung
CPT/HCPCS: 36430; 80053; 83605; 83735; 84100; 84484; 85014; 85018; 85027; 85610; 85730; 86850; 86900; 86901; 86922; 93005; 94664; 96360; 99285; P9016